=== PATIENT | male | born 1970 | race Caucasian/White ===

== ENCOUNTER 2016-07-08 02:14 | Inpatient (IN) | payer MEDICAID ==
[~2016-07-08] VITALS: Ht 170.2 cm; Wt 78.0 kg
[2016-07-08] VITALS (7 sets, daily range): BP systolic 90–105; BP diastolic 34–61; PULSE 50–81; RESP 17–20; TEMP 96.8–97.9; O2SAT 93–100
[~2016-07-08 02:14] MED LIST: ACET-2165 PEG; ALBU2.5V7 INH; ASCO500T20 PEG; BISA5TAB10 RC; CITA40TA22 PEG; HYDR-1189 PEG; INSU100V11 SQ; MAGN400O4 PEG; NA P118E RC; NEU300 PEG; OMEP20CA10 PEG; RIVA20TA PEG; TEMA15CA51 PEG
--- NOTE | 2016-07-08 02:20 | NUR ---
Placed in room 6 . Placed on classroom monitor, blood pressure machine and pulse oximeter. To gown for exam. Side rails up. Report given to Ladonna SIMMONS.
--- NOTE | 2016-07-08 02:25 | NUR ---
at bedside examining pt
[2016-07-08] MEDS ORDERED: HYDROcodone/ACETAMIN 10-325 MG TAB PO ONE (02:30)
--- NOTE | 2016-07-08 02:30 | NUR ---
Low blood pressure and bradycardia reported to Dr. Herrera.
--- NOTE | 2016-07-08 02:40 | NUR ---
Pt BIB EMS with clogged suprapubic catheter per [facility], and blood in penis. Pt presents with BP 72/46, 98% on 2L via trachiostomy, HR 48. Suprapubic site covered with 4x4 drsg. Penis appeared to be lacerated from meatus down to mid-shaft, oozing of blood presents. Pt A&Ox4, denies SOB or chestpain, denies N/V/D. Will continue to monitor Addendum: 07/08/16 at 0419 by SDEDDJP Gtube at upper abdomen, colostomy at LLQ, L ischium pressure injury present upon arrival Addendum: 07/08/16 at 0422 by SDEDDJP SACROCOCCYX WOUND PRESENT UPON ARRIVAL
--- NOTE | 2016-07-08 02:40 | NUR ---
Unable to give pain medication due to hypotension.
[2016-07-08] MEDS ORDERED: NACL 0.9% 1,000 ML IV ONE ×4 (03:00→20:15)
--- NOTE | 2016-07-08 03:00 | NUR ---
Unable to get urine due to being clogged and unsuccessful flushing. Dr Herrera made aware.
--- NOTE | 2016-07-08 03:15 | NUR ---
# 22 gauge angiocath placed to L hand. Use of asceptic technique. Opsite placed over site. Blood return noted. Flushed with 10 cc of normal saline. No evidence of infiltration noted. Patient tolerated well.
[2016-07-08 04:07] LABS: HEMATOCRIT 26.2 % (36-54); HEMOGLOBIN 8.7 g/dL (14.0-18.0); MEAN CORPUSCULAR HEMOGLOBIN 29 pg (27-31); MEAN CORPUSCULAR HGB CONC 33 % (32-36); MEAN CORPUSCULAR VOLUME 89 fL (79.0-98.0); PLATELET COUNT (AUTO) 331 K/uL (130-430); RED BLOOD CELL COUNT(AUTO) 2.96 MIL/uL (4.2-6.2); RED CELL DISTRIBUTION WIDTH 15.3 % (9.0-15.0); WHITE BLOOD COUNT (AUTO) 11.4 K/uL (4.8-10.8)
--- NOTE | 2016-07-08 04:20 | NUR ---
Pt is very anxious and is obvious pain. AAOx4. No signs of lethargy. Will continue to monitor via athletic monitor.
--- NOTE | 2016-07-08 04:20 | NUR ---
Pt turned on side with pillow. Pt tolerated well.
[2016-07-08 04:30] LABS: ATYPICAL LYMPHOCYTES % 0 % (0-0); BAND % (MANUAL) 2 % (0-6); BASOPHILS % (MANUAL) 0 % (0-2); EOSINOPHILS % (MANUAL) 5 % (0-7); LYMPHOCYTES % (MANUAL) 25 % (20-46); MONOCYTES % (MANUAL) 6 % (0-11)
[2016-07-08] MEDS ORDERED: ACETAMINOPHEN 650 MG/20.3 ML UDC ONE (04:45)
[2016-07-08 04:50] LABS: CALCIUM 9.3 mg/dL (8.4-11.0); CREATININE 0.43 mg/dL (0.55-1.30); POTASSIUM 4.2 mmol/L (3.5-5.1)
[2016-07-08 04:54] LABS: ALBUMIN 2.8 g/dL (3.4-4.8); PROTHROMBIN TIME 11.1 SECS (9.5-12.5); TOTAL BILIRUBIN 0.4 mg/dL (0.0-1.0); TOTAL PROTEIN, SERUM 7.2 g/dL (6.4-8.3)
[2016-07-08] MEDS ORDERED: SACC250C3 GT (05:02)
[2016-07-08] MEDS ORDERED: ESCI20TA GT (05:02)
[2016-07-08] MEDS ORDERED: BUDE0.5A INH (05:02)
[2016-07-08] MEDS ORDERED: INSU100V9 SUBCUT (05:02)
[2016-07-08] MEDS ORDERED: DEXL30CA3 GT (05:02)
--- NOTE | 2016-07-08 05:02 | NUR ---
Medication reconciliation completed with information provided by facility. Any prior medication reconciliation on file was reviewed and corrected.
--- NOTE | 2016-07-08 06:00 | NUR ---
Sepsis protocol initated by Dr. Herrera.
--- NOTE | 2016-07-08 06:00 | NUR ---
Dr. Herrera placed 14 welsh urinary catheter in suprapubic area via sterile technique. Flushed out site and started draining bloody urine 150 mL. Pt tolerated well.
[2016-07-08] MEDS ORDERED: cefTRIAXone 1 GM IVPB PREMIX 50 ML IV ONE (06:15)
[2016-07-08] MEDS ORDERED: KETOROLAC TROMETHAMINE 30 MG VIAL IVP ONE (06:15)
[2016-07-08] MEDS ORDERED: KETOROLAC TROMETHAMINE 30 MG VIAL ONE (06:16)
--- NOTE | 2016-07-08 06:20 | NUR ---
Pt turned on side with pillow. Pt tolerated well.
--- NOTE | 2016-07-08 06:20 | NUR ---
Pt is very anxious and is obvious pain. AAOx4. No signs of lethargy. Will continue to monitor via manager group.
[2016-07-08] MEDS ORDERED: ONDANSETRON HCL 4 MG/2 ML VIAL IVP PRN ×2 (06:45→08:00)
--- NOTE | 2016-07-08 06:51 | NUR ---
ADMISSION: The patient, CAITLYN MACDONALD, 45 y/o, M admitted by Dr Hameed, pt AAOX4, DIAGNOSIS OF POSSIBLE SEPSIS, was given written information regarding hospital policies, unit procedures and contact persons.
--- NOTE | 2016-07-08 06:55 | NUR ---
Patient will be admitted to care of Dr. Hameed. Admitted to Med Surg unit. Will go to room 119A. Summary report printed. Report given to Admitting RN.
[2016-07-08] MEDS ORDERED: ACETAMINOPHEN 650 MG/20.3 ML UDC PO ONE (07:30)
[2016-07-08] MEDS ORDERED: BISACODYL 5 MG TABLET.DR (DULCOLAX) GT PRN (08:00)
[2016-07-08] MEDS ORDERED: POTASSIUM CHLORIDE 10 MEQ TAB.PRT.SR PO PRN (08:00)
[2016-07-08] MEDS ORDERED: MORPHINE 2 MG/ML INJ. SYRINGE IVP PRN (08:00)
[2016-07-08] MEDS ORDERED: MILK OF MAGNESIA 30 ML UDC GT PRN (08:00)
[2016-07-08] MEDS ORDERED: DEXTROSE 50% JECT 50 ML DISP.SYRIN IVP PRN (08:00)
[2016-07-08] MEDS ORDERED: NA PHOS,M-B/NA PHOS,DI-BA 118 ML (FLEET ENEMA) RC PRN (08:00)
[2016-07-08] MEDS ORDERED: MAGNESIUM SULFATE 50 ML IV PRN (08:00)
[2016-07-08] MEDS ORDERED: DOCUSATE SODIUM 100 MG CAPSULE PO PRN (08:00)
[2016-07-08] MEDS ORDERED: ACETAMINOPHEN 325 MG TABLET PO PRN (08:00)
[2016-07-08] MEDS ORDERED: ALBUTEROL SULFATE 0.083% 2.5 MG/3 ML VIAL.NEB INH PRN (08:00)
[2016-07-08] MEDS ORDERED: ZOLPIDEM TARTRATE 5 MG TABLET PO PRN (08:00)
[2016-07-08] MEDS ORDERED: INSULIN ASPART 100 UNITS/ML, 10 ML VIAL (NovoLOG) SUBCUT PRN (08:00)
--- NOTE | 2016-07-08 08:05 | NUR ---
INITIAL NOTES RECEIVED PATIENT FROM ADMITTING NURSE AWAKE ALERT AND ORIENTED.BREATHING EVEN AND UNLABORED WITH T-BAR ATTACHED TO O2 AT 2L/M.WITH SUPRAPUBIC CATHETER DRAINING DARK RED BLOOD.WITH GT INTACT AND PATENT.WITH IV SALINE LOCK TO LEFT HAND;INTACT AND PATENT.SAFETY AND FALL PRECAUTIONS IN PLACE.CALL LIGHT WITHIN REACH
[2016-07-08 08:23] LABS: BILIRUBIN,URINE 1+ (NEGATIVE); BLOOD, URINE 3+ (NEGATIVE); CLARITY/URINE CLOUDY (CLEAR); COLOR,URINE BROWN (YELLOW); GLUCOSE,URINE NEGATIVE (NEGATIVE); KETONES,URINE TRACE (NEGATIVE); LEUKOCYTE ESTERASE ,URINE TRACE (NEGATIVE); NITRITE, URINE POSITIVE (NEGATIVE); PROTEIN URINE 3+ (NEGATIVE)
[2016-07-08 08:24] LABS: BACTERIA,URINE FEW /HPF (None Seen); RBC,URINE >100 /HPF (0-3)
[2016-07-08 08:25] LABS: MUCUS,URINE 1+ /LPF (None Seen)
--- NOTE | 2016-07-08 08:29 | NUR ---
NOTES PATIENT COMPLAINING OF SEVERE PAIN TO BILATERAL ARMS;HR=54;BLOOD PRESSURE 101/60;INFORMED DR. GRIER WHO IS ON THE FLOOR IF OKAY TO GIVE MORPHINE SULFATE ORDERED SAID ITS OKAY BECAUSE PATIENT'S HEART RATE AND BLOOD PRESSURE IS ALWAYS LOW
[2016-07-08] MEDS: MORPHINE 2 MG/ML INJ. SYRINGE IVP PRN ×2 (08:30→16:42)
[2016-07-08] MEDS: BUDESONIDE 0.5 MG/2 ML AMPUL.NEB INH SCH ×2 (09:00→20:03)
--- NOTE | 2016-07-08 09:13 | NUR ---
Consult Dr Hodge aware of the consult. Will follow up as needed.
[2016-07-08] MEDS: ASCORBIC ACID 500 MG TABLET GT SCH (10:03)
[2016-07-08] MEDS: CITALOPRAM HYDROBROMIDE 20 MG TABLET GT SCH (10:03)
[2016-07-08] MEDS: ACETAMINOPHEN 325 MG TABLET GT PRN (10:05)
--- NOTE | 2016-07-08 10:05 | NUR ---
NOTES CHECKED PATIENT;NEEDS ATTENDED TO
[2016-07-08] MEDS: NACL 0.9% 1,000 ML IV SCH ×2 (10:17→18:02)
[2016-07-08] MEDS: LEVOFLOXACIN 500 MG/D5W 100 ML IV SCH (10:28)
[2016-07-08] MEDS: HYDROcodone/ACETAMIN 5-325 MG TAB (NORCO/ VICODIN) GT PRN ×2 (11:56→20:58)
--- NOTE | 2016-07-08 12:00 | NUR ---
NOTES PATIENT ON BED AWAKE;WITH SLIGHT AGITATION;NEEDS ATTENDED TO
--- NOTE | 2016-07-08 14:16 | NUR ---
NOTES PATIENT TALKING TO RELATIVES;CALM AND RELAX
[2016-07-08] MEDS: GABAPENTIN 300 MG CAPSULE GT SCH (14:42)
--- NOTE | 2016-07-08 16:00 | NUR ---
NOTES PATIENT'S RELATIVES CAME TO VISIT;NO DISTRESS
[2016-07-08] MEDS: LORazepam 2 MG/ML VIAL IVP PRN (16:40)
--- NOTE | 2016-07-08 17:50 | NUR ---
NOTES CHECKED PATIENT;ASLEEP;NO SIGNS AND SYMPTOMS OF ACUTE DISTRESS
--- NOTE | 2016-07-08 18:41 | NUR ---
CLOSING NOTES PATIENT ON BED ASLEEP.BREATHING EVEN AND UNLABORED.NO SIGNS AND SYMPTOMS OF ACUTE DISTRESS.WITH GT FEEDING AT 75 ML/HR;TOLERATING WELL.WITH IVF INFUSING WELL;NO SIGNS AND SYMPTOMS OF INFILTRATION.WITH SUPRAPUBIC CATHETER;INTACT AND PATENT DRAINING BLOODY URINE.SAFETY AND FALL PRECAUTIONS IN PLACE.CALL LIGHT WITHIN REACH.WILL ENDORSE TO NEXT SHIFT ACCORDINGLY
--- NOTE | 2016-07-08 19:08 | NUR ---
INITIAL NOTES RECVD PT IN BED,A/A/OX2. NO C/O PAIN AND NO SOB NOTED. IV NOTED TO L HAND G 22,NO INFILTRATE AND WITH GOOD BLOOD RETURN. UPPER EXTREMITIES ARE CONTRACTED AND WEAKNESS NOTED TO BLE. SUPRAPUBIC CATH NOTED WITH DARK RED URINE IN THE BAG AMOUNTING TO 750CC. NOTED ALSO LARGE AMOUNT OF BLOOD TO PENILE AREA. PLAN WAS DISCUSSED WITH PT AND VERBALIZED UNDERSTANDING. CALL LIGHT WITHIN REACH,WILL CONT TO MONITOR. Addendum: 07/08/16 at 2213 by Michael Gibbons RN V/S ARE 86/50,98.0,84,18,98% 2L T BAR.
--- NOTE | 2016-07-08 19:50 | NUR ---
SPOKE WITH DR CHERRIE THAPA AND SPOKE WITH DR GRIER ABOUT PT'S BLEEDING AND LOW B/P. THE GOOD DOCTOR ORDERED N/S BOLUS OT AND CBC FOR ADAM. ORDER NOTED AND CARRIED OUT.
--- NOTE | 2016-07-08 19:54 | NUR ---
paged for Dr Hameed, dialed . s/w Spencer.
[2016-07-08] MEDS ORDERED: RIVAROXABAN 10 MG TABLET GT SCH (21:00)
--- NOTE | 2016-07-08 21:08 | NUR ---
ROUNDS PT SLEEPING COMFORTABLY @ THIS TIME.NO S/S OF PAIN AND NO DISTRESS NOTED.BED IN LOW POSITION WITH SIDE RAILS UP X3.CALL LIGHT WITHIN REACH,WILL CONT TO MONITOR.
--- NOTE | 2016-07-08 21:30 | NUR ---
B/P INCREASED AFTER BOLUS BOLUS N/S GIVEN,B/P WENT UP TO 124/78.
--- NOTE | 2016-07-08 23:08 | NUR ---
ROUNDS PT IS ASLEEP @ THIS TIME. NO S/S OF PAIN AND NO DISTRESS NOTED. CALL LIGHT WITHIN REACH,WILL CONT TO MONITOR.
[2016-07-09] VITALS (7 sets, daily range): BP systolic 98–143; BP diastolic 47–73; PULSE 58–83; RESP 16–20; TEMP 97.8–99.6; O2SAT 98–100
[2016-07-09] MEDS: GABAPENTIN 300 MG CAPSULE GT SCH ×4 (00:48→21:28)
--- NOTE | 2016-07-09 01:08 | NUR ---
ROUNDS PT SLEEPING COMFORTABLY @ THIS TIME.NO S/S OF PAIN AND NO DISTRESS NOTED.ASSISTED TO TURN IN BED. BLOOD STILL NOTED TO F/C BAG. BED IN LOW POSITION WITH SIDE RAILS UP X3.CALL LIGHT WITHIN REACH,WILL CONT TO MONITOR.
[2016-07-09] MEDS: NACL 0.9% 1,000 ML IV SCH ×3 (02:31→21:29)
--- NOTE | 2016-07-09 03:08 | NUR ---
ROUNDS PT ASLEEP@ THIS TIME.NO C/O OF PAIN AND NO RESPI DISTRESS NOTED.BED IN LOW POSITION WITH SIDE RAILS UP X3.CALL LIGHT WITHIN REACH,WILL CONT TO MONITOR.
[2016-07-09] MEDS: HYDROcodone/ACETAMIN 5-325 MG TAB (NORCO/ VICODIN) GT PRN (05:47)
[2016-07-09 06:36] LABS: BASOPHILS # (AUTO) 0.1 K/uL (0.0-0.2); BASOPHILS % (AUTO) 1.1 % (0.0-2.0); EOSINOPHILS # (AUTO) 0.4 K/uL (0.0-0.4); EOSINOPHILS % (AUTO) 4.6 % (0.0-4.0); LYMPHOCYTES # (AUTO) 2.1 K/uL (1.0-5.5); LYMPHOCYTES % (AUTO) 21.9 % (20.5-51.5); MEAN CORPUSCULAR HEMOGLOBIN 30 pg (27-31); MEAN CORPUSCULAR HGB CONC 34 % (32-36); MEAN CORPUSCULAR VOLUME 90 fL (79.0-98.0); MONOCYTES # (AUTO) 0.8 K/uL (0.0-1.0); MONOCYTES % (AUTO) 7.9 % (1.7-9.3); NEUTROPHILS # (AUTO) 6.3 K/uL (1.8-7.7); NEUTROPHILS % (AUTO) 64.5 % (40.0-70.0); PLATELET COUNT (AUTO) 233 K/uL (130-430); RED BLOOD CELL COUNT(AUTO) 2.05 MIL/uL (4.2-6.2); RED CELL DISTRIBUTION WIDTH 15.2 % (9.0-15.0); WHITE BLOOD COUNT (AUTO) 9.7 K/uL (4.8-10.8)
[2016-07-09 06:42] LABS: CALCIUM 8.5 mg/dL (8.4-11.0); CREATININE 0.35 mg/dL (0.55-1.30); POTASSIUM 4.1 mmol/L (3.5-5.1)
[2016-07-09] MEDS: ACETAMINOPHEN 325 MG TABLET GT PRN (06:57)
--- NOTE | 2016-07-09 07:00 | NUR ---
FINAL ROUNDS PT IS SLEEPING @ THIS TIME. NO S/S OF PAIN AND NO DISTRESS NOTED. V/S ARE WNL. ALL NEEDS MET AND ANTICIPATED BY NOC NURSES. BED @ LOW POSITION AND SIDE RAILS UPX3 FOR SAFETY. CALL LIGHT WITHIN REACH, WILL CONT TO MONITOR.
[2016-07-09] MEDS: BUDESONIDE 0.5 MG/2 ML AMPUL.NEB INH SCH ×2 (07:15→20:21)
[2016-07-09 07:17] LABS: HEMATOCRIT 18.4 % (36-54); HEMOGLOBIN 6.2 g/dL (14.0-18.0)
--- NOTE | 2016-07-09 07:21 | NUR ---
PAGED DR GRIER FOR CRITICAL LAB LAB CALLED FOR H/H 6.2,18.4.DAY SHIFT NURSE SHANIQUA OAKLEY.
--- NOTE | 2016-07-09 07:43 | NUR ---
NOTES DR. GRIER CALLED BACK; INFORMED REGARDING HG=6.2 HCT=18.4;WITH ORDER FOR BLOOD TRANSFUSION;CARRIED OUT
--- NOTE | 2016-07-09 08:00 | NUR ---
INITIAL NOTES RECEIVED PATIENT ON BED ASLEEP.BREATHING EVEN AND UNLABORED WITH TRACH ATTACHED TO 02 AT 2 L/M .NO ACUTE DISTRESS.IVF INFUSING WELL;NO SIGNS AND SYMPTOMS OF INFILTRATION.WITH GTF FEEDING AT 75 ML/HR;TOLERATING WELL.WITH SUPRAPUBIC CATHETER INTACT AND PATENT DRAINING BLOODY URINE.SAFETY AND FALL PRECAUTIONS IN PLACE.CALL LIGHT WITHIN REACH
[2016-07-09] MEDS: LEVOFLOXACIN 500 MG/D5W 100 ML IV SCH (09:22)
[2016-07-09] MEDS: ASCORBIC ACID 500 MG TABLET GT SCH (09:24)
[2016-07-09] MEDS: CITALOPRAM HYDROBROMIDE 20 MG TABLET GT SCH (09:24)
--- NOTE | 2016-07-09 09:45 | NUR ---
NOTES INFORMED DR. GRIER REGARDING PATIENT'S WANTING TO EAT;WITH ORDER FOR SWALLOW EVAL;CARRIED OUT
--- NOTE | 2016-07-09 10:00 | NUR ---
NOTES INFORMED PATIENT REGARDING DOCTOR'S ORDER FOR BLOOD TRANSFUSION DUE TO LOW HEMOGLOBIN SAID OK BUT UNABLE TO SIGN THE CONSENT DUE TO CONTRACTED HANDS. Addendum: 07/09/16 at 1124 by Melonie Zambrano RN PATIENT IS ALERT AND ORIENTED X4
[2016-07-09] MEDS: MORPHINE 2 MG/ML INJ. SYRINGE IVP PRN (10:46)
--- NOTE | 2016-07-09 10:50 | NUR ---
Swallow evaluation: Ольга was called Rg: swallow eval left massage
--- NOTE | 2016-07-09 11:10 | NUR ---
BT INITIATION:H/H 6.2/18.4 Consent signed per agreeing to administration of blood. Blood has been type and crossmatched. Blood sent from blood bank. Information on unit of blood checked against patient wristband at bedside by two nurses. All information matches. Patient or responsible alliance party informed of potential complications associated with blood transfusion. Informed of possible transfusion reaction symptoms. Aware of need to notify nurse at once of itching, shortness of breath, flushing, feeling of impending doom, or other symptoms not previously present. Vital signs taken within 5 minutes prior to initiation of transfusion. RN will remain with patient for first 15 minutes of transfusion at which time vital signs will be re-assessed.
--- NOTE | 2016-07-09 14:58 | NUR ---
Kaylee SWALLOW EVAL COMPLETED. PT PRESENTS W/ FUNCTIONAL OROPHARYNGEAL SWALLOW W/ NO S/S OF ASPIRATION (NO BLUE DYE SUCTIONED) AND NO S/S OF RESP DISTRESS. REC: [facility] SOFT CHOPPED DIET. THIN LIQUIDS OK. NURSE MOR NOTIFIED. G8996 CI G8997 CI G8998 CI NOMS LEVEL 6 Addendum: 07/09/16 at 1503 [address]а [address] SWALLOW EVAL (BLUE DYE SWALLOWING TEST) COMPLETED. Duyen PRESENT TO HELP W/ SUCTIONING.
--- NOTE | 2016-07-09 15:04 | NUR ---
NOTES SWALLOW EVAL DONE;SPEECH THERAPIST RECOMMENDED MECHANICAL SOFT CHOPPED;WILL INFORM MD
--- NOTE | 2016-07-09 16:14 | NUR ---
NOTES PAGED DR. GRIER;AWAITING FOR CALL BACK
--- NOTE | 2016-07-09 16:26 | NUR ---
NOTES SUCTIONING DONE;WITH SMALL WHITE THICK SECRETIONS;PROCEDURE TOLERATED WELL
[2016-07-09 17:40] LABS: BASOPHILS # (AUTO) 0.1 K/uL (0.0-0.2); BASOPHILS % (AUTO) 0.8 % (0.0-2.0); EOSINOPHILS # (AUTO) 0.4 K/uL (0.0-0.4); EOSINOPHILS % (AUTO) 3.7 % (0.0-4.0); HEMOGLOBIN 7.1 g/dL (14.0-18.0); LYMPHOCYTES # (AUTO) 2.1 K/uL (1.0-5.5); LYMPHOCYTES % (AUTO) 21.6 % (20.5-51.5); MEAN CORPUSCULAR HEMOGLOBIN 29 pg (27-31); MEAN CORPUSCULAR HGB CONC 33 % (32-36); MONOCYTES # (AUTO) 0.7 K/uL (0.0-1.0); MONOCYTES % (AUTO) 6.9 % (1.7-9.3); NEUTROPHILS # (AUTO) 6.3 K/uL (1.8-7.7); PLATELET COUNT (AUTO) 215 K/uL (130-430); RED BLOOD CELL COUNT(AUTO) 2.43 MIL/uL (4.2-6.2); RED CELL DISTRIBUTION WIDTH 14.6 % (9.0-15.0); WHITE BLOOD COUNT (AUTO) 9.6 K/uL (4.8-10.8)
--- NOTE | 2016-07-09 17:40 | NUR ---
NOTES DR. GRIER CALLED BACK;INFORMED REGARDING SPEECH THERAPIST RECOMMENDATION FOR [facility] SOFT CHOPPED DIET SAID OK;CARRIED OUT
[2016-07-09 17:46] LABS: HEMATOCRIT 21.4 % (36-54); MEAN CORPUSCULAR VOLUME 88 fL (79.0-98.0)
--- NOTE | 2016-07-09 18:30 | NUR ---
NOTES PATIENT FED BY OIL PRODUCER;TOLERATED FOOD WELL
--- NOTE | 2016-07-09 18:33 | NUR ---
CLOSING NOTES PATIENT ON BED AWAKE.BREATHING EVEN AND UNLABORED ASKING FOR ANXIETY MEDICATION.IVF INFUSING WELL;NO SIGNS AND SYMPTOMS OF INFILTRATION.GT FEEDING INFUSING WELL;TOLERATING WELL.SUPRA PUBIC CATHETER INTACT AND PATENT DRAINING BLOODY URINE.SAFETY AND FALL PRECAUTIONS IN PLACE.CALL LIGHT WITHIN REACH.WILL ENDORSE TO NEXT SHIFT ACCORDINGLY.
[2016-07-09] MEDS: LORazepam 2 MG/ML VIAL IVP PRN (18:45)
--- NOTE | 2016-07-09 19:15 | NUR ---
change of shift.pt.'s initial assessment.pt.present isolation:presents g-tube:diabetic source infusing @75ml/hr.supra-pubic catheter:hematuria manifested.iv fluids.trach:t-bar connected 2 o2 @2l/min;humidified air. colostomy:llq.functional.wounds:decubitus call light placed w/in pt's reach. Addendum: 07/10/16 at 0236 by Rubin Kramer RN pt.'s isolation:contact.mrsa:nares.
--- NOTE | 2016-07-09 19:45 | NUR ---
pt.assessed.v/s assessed.values w/in normal limits.g-tube assessed. g-tube flushed.suprapubic catheter flushed;manually.blood/clots+. call light placed w/in pt's reach.
--- NOTE | 2016-07-09 20:00 | NUR ---
pt.assessed.pt.repositioned.pt.suctioned.pt.presents trach:talking trach: pt.able to convey needs verbally.call light placed w/in pt's reach.
--- NOTE | 2016-07-09 21:00 | NUR ---
medication:neurontin administered.iv fluids bag changed.no request@this hour. call light w/in pt's reach.g-tube residual assessed p/t administration medications.10ml returned.
--- NOTE | 2016-07-09 22:00 | NUR ---
pt.assessed.pt.repositioned.pt.presents quiescent affect.pt.suctioned. g-tube assessed.iv fluids assessed.supra-pubic catheter flushed;manually. blood/clots +.call light placeds w/in pt's reach.
--- NOTE | 2016-07-09 22:21 | NUR ---
paged for Dr Hameed, dialed . s/w Alberto.
--- NOTE | 2016-07-09 22:30 | NUR ---
telephoned:re:hgb:low value s/p prbc's trx;2-units:07/09/16. hgb post trx:7.1 did not provide new orders. stated he will assess pt.in am:07/10/16.
--- NOTE | 2016-07-10 | NUR ---
pt.assessed.pt.repositioned.pt.presents quiescent affect;calm,asleep. pt.suctioned.g-tube assessed.iv fluids assessed.supra-pubic catheter flushed;manually.blood/clots+.call light placed w/in pt's reach. Addendum: 07/10/16 at 0227 by Rubin Kramer RN g-tube residual assessed:10ml returned.
--- NOTE | 2016-07-10 00:05 | NUR ---
Rounds Patient is currently resting in bed. Call light is within reach.
[2016-07-10 00:12] VITALS: BP 118/56; PULSE 58; RESP 19; TEMP 98.2; O2SAT 99
--- NOTE | 2016-07-10 02:00 | NUR ---
pt.assessed.pt.presents quiescent affect;calm,asleep.pt.repositioned. g-tube assesed.iv fluids assessed.02 sat%=96%@2l/min.pt.suctioned. supra-pubic catheter flushed;manually:blood/clots +returned.
--- NOTE | 2016-07-10 04:00 | NUR ---
pt.assessed.v/s assessed.o2 sat%=96%.pt.repositioned.pt.suctioned.g-tube feed assessed,iv fluids infusing. supra-pubic catheter flushed;manually:hemturia/clots+.call light placed w/in pt's reach. Addendum: 07/10/16 at 0409 by Rubin Kramer RN colostomy assessed:dry/intact.
[2016-07-10 04:01] VITALS: BP 134/63; PULSE 56; RESP 18; TEMP 97.8; O2SAT 99
[2016-07-10] MEDS: GABAPENTIN 300 MG CAPSULE GT SCH ×3 (06:23→21:41)
[2016-07-10] MEDS: MORPHINE 2 MG/ML INJ. SYRINGE IVP PRN ×4 (06:25→22:48)
[2016-07-10 06:50] LABS: BASOPHILS # (AUTO) 0.1 K/uL (0.0-0.2); BASOPHILS % (AUTO) 0.7 % (0.0-2.0); EOSINOPHILS # (AUTO) 0.3 K/uL (0.0-0.4); EOSINOPHILS % (AUTO) 3.3 % (0.0-4.0); HEMATOCRIT 24.1 % (36-54); LYMPHOCYTES # (AUTO) 2.1 K/uL (1.0-5.5); LYMPHOCYTES % (AUTO) 24.2 % (20.5-51.5); MEAN CORPUSCULAR HEMOGLOBIN 30 pg (27-31); MEAN CORPUSCULAR HGB CONC 33 % (32-36); MEAN CORPUSCULAR VOLUME 89 fL (79.0-98.0); MONOCYTES # (AUTO) 0.7 K/uL (0.0-1.0); MONOCYTES % (AUTO) 7.8 % (1.7-9.3); NEUTROPHILS # (AUTO) 5.6 K/uL (1.8-7.7); PLATELET COUNT (AUTO) 242 K/uL (130-430); RED BLOOD CELL COUNT(AUTO) 2.69 MIL/uL (4.2-6.2); RED CELL DISTRIBUTION WIDTH 15.2 % (9.0-15.0); WHITE BLOOD COUNT (AUTO) 8.8 K/uL (4.8-10.8)
[2016-07-10 06:51] LABS: CALCIUM 8.6 mg/dL (8.4-11.0); CREATININE 0.33 mg/dL (0.55-1.30); POTASSIUM 3.8 mmol/L (3.5-5.1)
--- NOTE | 2016-07-10 07:08 | NUR ---
pt.assessed.pt.clean
--- NOTE | 2016-07-10 07:09 | NUR ---
pt.assessed.pt.cleaned.pt.repositioned.colostomy bag changed.wounds:sacrum/lt.buttocks;cleaned dsg changed,g-tube feeding bag changed,g-tube dsg changed,supra-pubic catheter dsg cleaned changed.supra-pubic catheter flushed; manually.blood glucose assessed:125mg/dl:no insulin coverage/ sliding scale.pt.prequested medication;pain. i have administered morphine:2mg ivp.call light placed w/in pt's reach.
--- NOTE | 2016-07-10 08:00 | NUR ---
initial rounds rec patient awake alert with hob slightly elevated.ivf infusing well on the l hand. no infiltration noted. with a trache connected to a t bar at 2 liters via nasal cannula. resp easy and unlabored. on contact isolation for mrsa nares. bed in low position and side rails up and locked. call light within reached and knows when to call for assistance. will continue to monitor patient.
--- NOTE | 2016-07-10 09:20 | NUR ---
Nutrition Update Leonardo Scale 10 noted. Pt admitted for sepsis. Diet: mechanical soft, chopped BMI: 27.4 kg/m2 RD to follow per nutrition care standards.
[2016-07-10] MEDS: ASCORBIC ACID 500 MG TABLET GT SCH (10:08)
[2016-07-10] MEDS: LEVOFLOXACIN 500 MG/D5W 100 ML IV SCH (10:08)
[2016-07-10] MEDS: CITALOPRAM HYDROBROMIDE 20 MG TABLET GT SCH (10:08)
--- NOTE | 2016-07-10 10:15 | NUR ---
rounds am care rendered by leandro brito and assisted at bedside. colostomy bag leaked and was changed. wound care rendered on the sacral area.turned repositioned for comfort.
--- NOTE | 2016-07-10 10:31 | NUR ---
CONSULTATION: REASON FOR CONSULT: SUPRAPUBIC CATH MALFUNCTION CONSULTING PHYSICIAN: EFRAIN ALFARO MD ORDERED BY: AUSTIN GRIER DO SPOKE WITH J CARLOS AND SHE STATED THAT THEY DONT EXCEPT MEDICAL.. SO I NOTIFIED CASE MANAGEMENT AND MARICEL SAID SHE WILL CONTACT DR ALFARO OFFICE.
--- NOTE | 2016-07-10 10:52 | NUR ---
rounds dr chapa was paged to notife him re bloody output of 1 liter. awaiting to call back. charged nurse morena made aware as well.
[2016-07-10 12:00] VITALS: BP 125/60; PULSE 86; RESP 18; TEMP 98.6; O2SAT 100
--- NOTE | 2016-07-10 12:20 | NUR ---
rounds endorsed care to mk re patient giana follow up with dr chapa and dr brielle garcia. no acute distress noted.
--- NOTE | 2016-07-10 12:30 | NUR ---
patient received received patient and report from TROY Root. Patient is resting comfortably in bed. no s/s of distress or sob. will continue to monitor.
[2016-07-10 13:43] VITALS: Ht 170.2 cm; Wt 78.0 kg
--- NOTE | 2016-07-10 14:30 | NUR ---
NOTE: PATIENT IS RESTING COMFORTABLY IN BED. NO S/S OF DISTRESS OR SOB. PATIENT IS ALERT AND ORIENTED. PATIENT HAS BEEN SUCTIONED TWICE. CALL LIGHT IN REACH, BED IN LOWEST POSITION, AND WILL CONTINUE TO MONITOR.
[2016-07-10 14:55] LABS: HEMATOCRIT 22.1 % (36-54); HEMOGLOBIN 7.5 g/dL (14.0-18.0)
[2016-07-10 16:00] VITALS: BP 131/59; PULSE 57; RESP 18; TEMP 99.3; O2SAT 100
--- NOTE | 2016-07-10 16:44 | NUR ---
DR. DOMINIC CONNELLY, CASE MANAGEMENT, CALLED AND SAID THAT NEERU SPOKE WITH DR. ALFARO AND HE AGREED TO COME IN TO SEE PATIENT. HE WILL BE COMING BY DANI.
--- NOTE | 2016-07-10 18:20 | NUR ---
CLOSING NOTE: PATIENT IS RESTING COMFORTABLY IN BED. NO S/S OF DISTRESS OR SOB. PATIENT IS ALERT AND ORIENTED, ABLE TO EXPRESS NEEDS, AND ASK FOR ASSISTANCE. RASHEED DRAINING TO GRAVITY, URINE STILL RED IN COLOR. OUTPUT FOR THIS SHIFT WAS 2500. CALL LIGHT IN REACH, BED IN LOWEST POSITION, AND WILL GIVE REPORT TO NIGHT NURSE.
[2016-07-10] MEDS: BUDESONIDE 0.5 MG/2 ML AMPUL.NEB INH SCH (19:45)
--- NOTE | 2016-07-10 20:00 | NUR ---
Opening Note Report received from Belle day shift RN. 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 Awake, alert, and, oriented. IV 20g and 22g left hand running NS@65ml/hr. Low airloss mattress is in place. Trach with t bar connected to O2 2L. Supra pubic catheter is in place. Colostomy bag is draining soft stool. GT is running diabetic source @ 75ml/hr. Call light is with in reach.
--- NOTE | 2016-07-10 20:02 | NUR ---
Rounds Patient is currently resting in bed. Complaints of 8/10 shoulder and arm pain. Will medicate with [place] and reassess.
[2016-07-10] MEDS: LORazepam 2 MG/ML VIAL IVP PRN (20:03)
--- NOTE | 2016-07-10 20:03 | NUR ---
MD Stephanie Tong is at the bedside for urology consultation. Suprapubic catheter was replaced with use of sterile procedure to 16french catheter. Patient tolerated well. Blood tinged urine noted. New urine sample sent to lab for culture. Patient was cleaned and new dressing applied to suprapubic area. MD aware of patient H/H, no new orders noted at this time, will continue monitor urine.
[2016-07-10 20:20] VITALS: BP 135/60; PULSE 60; RESP 20; TEMP 99.4; O2SAT 100
[2016-07-10] MEDS: NACL 0.9% 1,000 ML IV SCH (20:29)
[2016-07-10] MEDS: HYDROcodone/ACETAMIN 5-325 MG TAB (NORCO/ VICODIN) GT PRN (21:42)
--- NOTE | 2016-07-10 22:10 | NUR ---
Rounds Patient is currently resting in bed. Deep suction done per patients request.
[2016-07-11] VITALS (8 sets, daily range): BP systolic 104–135; BP diastolic 45–71; PULSE 55–86; RESP 13–20; TEMP 96.8–99.1; O2SAT 100
--- NOTE | 2016-07-11 02:15 | NUR ---
Rounds Patient is currently resting in bed. Call light is within reach. No signs of distress noted.
--- NOTE | 2016-07-11 04:20 | NUR ---
Rounds Patient is sleeping in bed. Call light is within reach.
[2016-07-11] MEDS: GABAPENTIN 300 MG CAPSULE GT SCH ×3 (05:39→21:56)
--- NOTE | 2016-07-11 06:44 | NUR ---
Closing Note Patient is in stable condition. No signs of distress noted. Call light is within reach.
[2016-07-11] MEDS: BUDESONIDE 0.5 MG/2 ML AMPUL.NEB INH SCH ×2 (07:12→19:32)
[2016-07-11 07:23] LABS: BASOPHILS # (AUTO) 0.1 K/uL (0.0-0.2); BASOPHILS % (AUTO) 0.7 % (0.0-2.0); EOSINOPHILS # (AUTO) 0.4 K/uL (0.0-0.4); HEMOGLOBIN 7.1 g/dL (14.0-18.0); LYMPHOCYTES # (AUTO) 2.1 K/uL (1.0-5.5); LYMPHOCYTES % (AUTO) 21.6 % (20.5-51.5); MEAN CORPUSCULAR HEMOGLOBIN 30 pg (27-31); MEAN CORPUSCULAR HGB CONC 34 % (32-36); MEAN CORPUSCULAR VOLUME 88 fL (79.0-98.0); MONOCYTES # (AUTO) 0.8 K/uL (0.0-1.0); NEUTROPHILS # (AUTO) 6.5 K/uL (1.8-7.7); NEUTROPHILS % (AUTO) 65.7 % (40.0-70.0); PLATELET COUNT (AUTO) 223 K/uL (130-430); RED BLOOD CELL COUNT(AUTO) 2.37 MIL/uL (4.2-6.2); RED CELL DISTRIBUTION WIDTH 15.3 % (9.0-15.0); WHITE BLOOD COUNT (AUTO) 9.9 K/uL (4.8-10.8)
[2016-07-11 07:30] LABS: HEMATOCRIT 20.7 % (36-54)
--- NOTE | 2016-07-11 07:30 | NUR ---
Handoff rounds. Patient sleeping at this time.
[2016-07-11 07:39] LABS: CALCIUM 8.5 mg/dL (8.4-11.0); CREATININE 0.4 mg/dL (0.55-1.30); POTASSIUM 3.7 mmol/L (3.5-5.1)
[2016-07-11] MEDS: LEVOFLOXACIN 500 MG/D5W 100 ML IV SCH (08:30)
[2016-07-11] MEDS: ASCORBIC ACID 500 MG TABLET GT SCH (08:30)
[2016-07-11] MEDS: CITALOPRAM HYDROBROMIDE 20 MG TABLET GT SCH (08:30)
[2016-07-11] MEDS: MORPHINE 2 MG/ML INJ. SYRINGE IVP PRN ×3 (08:35→18:36)
--- NOTE | 2016-07-11 09:30 | NUR ---
Rounds to patient. Needs met. Took medication with h20. Suction of trach performed.
[2016-07-11] MEDS: HYDROcodone/ACETAMIN 5-325 MG TAB (NORCO/ VICODIN) GT PRN ×2 (10:06→20:04)
--- NOTE | 2016-07-11 11:30 | NUR ---
Patient rounds. Suction requests frequently from patient.
[2016-07-11] MEDS: NACL 0.9% 1,000 ML IV SCH (13:08)
--- NOTE | 2016-07-11 13:30 | NUR ---
Transfusion of packed red cells complete. Vital signs within baseline.
--- NOTE | 2016-07-11 15:36 | NUR ---
Rounds to patient. Ostomy check at this time. Packed red blood running now.
--- NOTE | 2016-07-11 18:21 | NUR ---
handoff report for noc nurse prepared SERVER MANAGER feeding patient. Tube feed off at this time as patient had two units of prbc and dinner by mouth.
--- NOTE | 2016-07-11 19:10 | NUR ---
WOUND EVALUATION: Wound Consult received from Dr. Hameed. Thank you, Dr. Hameed, for the consult. Patient received in a Napoleon Bed with an IsoFlex OLI mattress with low air-loss therapy initiated, awake, alert, and oriented. Patient is unable to turn independently. Leonardo Score is a 10. 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 Recent Labs: WBC 9.9, RBC 2.37, HGB 7.1, HCT 20.7, BUN 13, Creat 0.40, Gluc 138. Intrinsic factors that delay wound healing: COPD, Diabetes Mellitus, and Malnutrition. Extrinsic factors that delay wound healing: Decreased mobility. Microbiology: Blood Culture x 2 and Urine Culture results in progress. MRSA Screen results positive. Wound Assessment: 1) Sacral-Coccygeal Area: Stage 4 Pressure Injury, present on admission. Wound bed is 5% black tissue, 15% yellow tissue, 80% red tissue. No odor, small Sanguineous drainage. Foreign-wound macerated, and has scar tissue. Surrounding tissue has scar tissue. Measures 7.4 cm x 5.5 cm x 4.9 cm. Undermining present from 8-3 o'clock, deepest 3.8 cm at 11 o'clock. Recommend: Cleanse wound with normal saline. Place moisture barrier cream onto foreign-wound. Put Venelex ointment into wound bed. Pack wound with four 2.2 inch TenderWet dressings, then two 1.6 inch TenderWet dressings. Cover with foam dressings, then secure with transparent dressings. Perform wound care daily, and as needed for dressing soiling or dislodgement. 2) Left Sacral Area: Wound, present on admission. Wound bed is 100% pink tissue. No odor, small Sanguineous drainage. Foreign-wound intact. Surrounding tissue has scar tissue. Measures 5.0 cm x 5.0 cm. Recommend: Cleanse wound with normal saline. Place moisture barrier cream onto foreign-wound. Put Venelex ointment onto wound bed. Cover with foam dressing, then secure with transparent dressing. Perform wound care daily, and as needed for dressing soiling or dislodgement. 3) Left Buttock Near Ischium: Unstageable Pressure Injury, present on admission. Wound bed is 5% black tissue, 15% red tissue, 80% yellow slough. No odor, small Sanguineous drainage. Foreign-wound macerated, and has scar tissue. Surrounding tissue has scar tissue. Measures 5.5 cm x 3.5 cm x 1.6 cm. Recommend: Cleanse wound with normal saline. Place moisture barrier cream onto foreign-wound. Put Venelex ointment onto wound bed. Cover with foam dressing, then secure with transparent dressing. Perform wound care daily, and as needed for dressing soiling or dislodgement. 4) Right Buttock Near Ischium: Moisture associated wounds, present on admission. Several with thin linear shapes, 100% red tissue, no odor, no drainage. Foreign-wounds intact. Recommend: Cleanse wounds with normal saline. Place moisture barrier cream onto wounds and foreign-wounds. Cover with foam dressing, then secure with transparent dressing. Perform wound care daily, and as needed for dressing soiling or dislodgement. Also recommend: Reposition patient every 2 hours with pillow support and off-load pressure areas with pillows for pressure re-distribution. Offload, elevate and float bilateral heels with pillows. Perform skin care and monitor skin integrity Q shift. Use moisture barrier cream on buttocks and other moisture susceptible areas QID and as needed for soiling. Maintain patient on a low air-loss mattress.
--- NOTE | 2016-07-11 19:45 | NUR ---
Start of shift notes Received pt.in bed, pt.alert, awake, oriented x4. Breathing even and non labored, on trache bar at 2L O2. With suprapubic cath draining yellow colored urine. Noted colostomy with soft formed stools. With IV infusing well to L hand. Pt.complained of shoulder and arm pain, will give PRN pain med. Pt.repositioned for comfort.
[2016-07-11] MEDS ORDERED: BALSAM PERU/CASTOR OIL 60 GM OINT...G. TP PRN (20:00)
--- NOTE | 2016-07-11 22:00 | NUR ---
Nurse rounds Due meds.given. Repositioned pt.
--- NOTE | 2016-07-12 00:15 | NUR ---
Nurse rounds Pt.resting. Repositioned pt.
[2016-07-12 01:53] VITALS: BP 103/52; PULSE 54; RESP 16; TEMP 98.6; O2SAT 10
--- NOTE | 2016-07-12 02:10 | NUR ---
Nurse rounds Pt.asleep. Repositioned pt.
[2016-07-12] MEDS: NACL 0.9% 1,000 ML IV SCH (02:49)
--- NOTE | 2016-07-12 04:15 | NUR ---
Nurse rounds Repositioned pt. Suctioning done.
[2016-07-12] MEDS: HYDROcodone/ACETAMIN 5-325 MG TAB (NORCO/ VICODIN) GT PRN (04:16)
[2016-07-12 04:46] VITALS: BP 107/49; PULSE 51; RESP 18; TEMP 97.7; O2SAT 100
[2016-07-12] MEDS: GABAPENTIN 300 MG CAPSULE GT SCH ×2 (06:12→13:28)
--- NOTE | 2016-07-12 06:15 | NUR ---
End of shift notes Pt.repositioned. Dressing changed and reinforced to sacro-coccyx area. Made comfortable in bed. Suctioning thru T-bar done. Made comfortable in bed.
[2016-07-12 07:26] LABS: BASOPHILS # (AUTO) 0.1 K/uL (0.0-0.2); BASOPHILS % (AUTO) 0.7 % (0.0-2.0); EOSINOPHILS # (AUTO) 0.5 K/uL (0.0-0.4); EOSINOPHILS % (AUTO) 4.8 % (0.0-4.0); HEMATOCRIT 26.3 % (36-54); HEMOGLOBIN 8.9 g/dL (14.0-18.0); LYMPHOCYTES # (AUTO) 2.3 K/uL (1.0-5.5); LYMPHOCYTES % (AUTO) 21.9 % (20.5-51.5); MEAN CORPUSCULAR HEMOGLOBIN 30 pg (27-31); MEAN CORPUSCULAR HGB CONC 34 % (32-36); MEAN CORPUSCULAR VOLUME 89 fL (79.0-98.0); MONOCYTES # (AUTO) 0.6 K/uL (0.0-1.0); MONOCYTES % (AUTO) 5.8 % (1.7-9.3); NEUTROPHILS # (AUTO) 6.8 K/uL (1.8-7.7); NEUTROPHILS % (AUTO) 66.8 % (40.0-70.0); PLATELET COUNT (AUTO) 220 K/uL (130-430); RED BLOOD CELL COUNT(AUTO) 2.97 MIL/uL (4.2-6.2); RED CELL DISTRIBUTION WIDTH 15.4 % (9.0-15.0); WHITE BLOOD COUNT (AUTO) 10.3 K/uL (4.8-10.8)
[2016-07-12 07:29] LABS: CALCIUM 8.9 mg/dL (8.4-11.0); CREATININE 0.44 mg/dL (0.55-1.30); POTASSIUM 3.8 mmol/L (3.5-5.1)
[2016-07-12] MEDS: BUDESONIDE 0.5 MG/2 ML AMPUL.NEB INH SCH (07:47)
--- NOTE | 2016-07-12 08:00 | NUR ---
PATIENT A/OX4, ON T-BAR 2-L, BREATHING UNLABORED AND EVEN. IV ON LEFT HAND. #20 AND #22. SUPRAPUBIC CATH IS DRAINING YELLO URINE. COLOSTOMY ON THE LEFT, DRAINING BROWN LOOSE STOOL. CALL LIGHT IN PLACE, BED AT LOWEST POSITION, WILL CONTINUE TO MONITOR CLOSELY.
[2016-07-12] MEDS: CITALOPRAM HYDROBROMIDE 20 MG TABLET GT SCH (08:49)
[2016-07-12] MEDS: ASCORBIC ACID 500 MG TABLET GT SCH (08:49)
[2016-07-12] MEDS: LEVOFLOXACIN 500 MG/D5W 100 ML IV SCH (08:49)
[2016-07-12] MEDS ORDERED: BALSAM PERU/CASTOR OIL 60 GM OINT...G. TP SCH (09:00)
--- NOTE | 2016-07-12 09:44 | NUR ---
DISCHARGE PLANNING DC order back to SNF. Faxed SNF referral to [phone]. Will follow up. Addendum: 07/12/16 at 1127 by Bria Dalal DP Patient assigned to room 130C TROY to report [phone], bed available anytime. TROY De La Garza made aware. Called [facility] spoke with Clark arranged BLS transport pick up truck driver 2:30pm. Placed transportation packet in nurses station.
[2016-07-12] MEDS: MORPHINE 2 MG/ML INJ. SYRINGE IVP PRN (11:29)
--- NOTE | 2016-07-12 12:00 | NUR ---
PATIENT IS RESTING, NO SIGNS OF DISTRESS NOTED.
[2016-07-12 12:10] VITALS: BP 103/57; PULSE 55; RESP 19; TEMP 97.4; O2SAT 100
--- NOTE | 2016-07-12 14:00 | NUR ---
PATIENT IS TURNED AND REPOSITIONED FOR COMFORT. NO SIGNS OF DISTRESS NOTED.
[2016-07-12 14:07] VITALS: BP 103/57; PULSE 87; RESP 16; TEMP 97.8; O2SAT 98
--- NOTE | 2016-07-12 15:52 | NUR ---
PT TRANSFERRED Report given to SIOBHAN. Transfer packet with Transfer Orders and Medication Reconciliation form given to EMT with report. Exitcare provided. [facility] ID band removed, replaced with ID band with pt's name and . IV catheter KEPT FOR ABX. All belongings sent with patient. Patient left floor via gurney escorted by EMT in no distress.
== END 2016-07-12 15:52 | DRG 720 ==
LOC: SED 02:14 → SMU 06:31
PROVIDERS: ADMIT General Practice; ATTEND General Practice
PROC: 30233N1 Transfusion of Nonautologous Red Blood Cells into Peripheral Vein, Percutaneous Approach (ICD-10-PCS; principal; 2016-07-09)
PROC: 5A1935Z Respiratory Ventilation, Less than 24 Consecutive Hours (ICD-10-PCS; 2016-07-12)
DX: A41.9 Sepsis, unspecified organism (principal); J96.90 Respiratory failure, unspecified, unspecified whether with hypoxia or hypercapnia; A92.31 West Nile virus infection with encephalitis; G82.50 Quadriplegia, unspecified; Z93.0 Tracheostomy status; E44.0 Moderate protein-calorie malnutrition; T83.89XA Other specified complication of genitourinary prosthetic devices, implants and grafts, initial encounter; E11.40 Type 2 diabetes mellitus with diabetic neuropathy, unspecified; E11.65 Type 2 diabetes mellitus with hyperglycemia; R31.9 Hematuria, unspecified; K21.9 Gastro-esophageal reflux disease without esophagitis; G89.29 Other chronic pain; F32.9 Major depressive disorder, single episode, unspecified; E86.1 Hypovolemia; D64.9 Anemia, unspecified; J44.9 Chronic obstructive pulmonary disease, unspecified; N31.9 Neuromuscular dysfunction of bladder, unspecified; N39.0 Urinary tract infection, site not specified; T83.090A Other mechanical complication of cystostomy catheter, initial encounter; Z93.3 Colostomy status; Z86.711 Personal history of pulmonary embolism; Z86.718 Personal history of other venous thrombosis and embolism; Z79.899 Other long term (current) drug therapy; Z22.322 Carrier or suspected carrier of Methicillin resistant Staphylococcus aureus; Z68.26 Body mass index [BMI] 26.0-26.9, adult
CPT/HCPCS: 36415; 80048; 80053; 81000-TC; 82962; 83605; 83735-TC; 85007; 85018-TC; 85025; 85027; 85610-TC; 85730-TC; 86886; 86900; 86901; 86920; 87040-TC; 87081; 87086; 92610-GN; 94640; 94760; 96361; 96374; 99285; A6209; J0696; J1815; J1885; J1956; J2060; J2270; J3475; J7030; J7040; J7050; P9021